=== PATIENT | male | born 1975 | race American Indian/Alaskan Native ===

== ENCOUNTER 2017-04-14 10:42 | Emergency (ER) | payer BC, OTHER ==
[2017-04-14] MEDS ORDERED: RX INFO: IV CONTRAST WAS GIVEN 1 EACH MISC MISCELLANE PRN (12:59)
[2017-04-14 13:24] LABS: Basophils # (A) 0.1 k/uL (0-0.2); Basophils % (A) 1 %; Eosinophils # (A) 0.1 k/uL (0-0.7); Eosinophils % (A) 2 %; HCT 49.4 % (39.0-53.0); HGB 16.2 gm/dL (13.0-17.5); Lymphocytes # (A) 2.5 k/uL (1.0-4.8); Lymphocytes % (A) 29 %; MCH 29.2 pg (25.0-35.0); MCHC 32.8 g/dL (31.0-37.0); Mean Platelet Volume 7.3; Monocytes # (A) 0.4 k/uL (0-1.0); Monocytes % (A) 4 %; Neutrophils # (A) 5.5 k/uL (1.3-7.7); Neutrophils % (A) 63 %; Platelet Count 311 k/uL (150-450); RBC 5.55 m/uL (4.30-5.90); RDW 13.8 % (11.5-15.5); WBC 8.6 k/uL (3.8-10.6)
[2017-04-14 13:33] LABS: Appearance,Urine Clear (Clear); Bilirubin,Urine Negative (Negative); Blood,Urine Negative (Negative); Color,Urine Colorless; Glucose,Urine (UA) Negative (Negative); Ketones,Urine Negative (Negative); Leukocyte Esterase,Urine Negative (Negative); Nitrite,Urine Negative (Negative); Protein,Urine Negative (Negative); Specific Gravity,Urine 1.001 (1.001-1.035); Urobilinogen,Urine <2.0 mg/dL (<2.0)
[2017-04-14 13:34] LABS: ALT 44 U/L (21-72); AST 16 U/L (17-59); Albumin 4.5 g/dL (3.5-5.0); Alkaline Phosphatase 78 U/L (38-126); Amylase 68 U/L (30-110); Anion Gap 15 mmol/L; Blood Urea Nitrogen 12 mg/dL (9-20); Calcium 10.2 mg/dL (8.4-10.2); Carbon Dioxide 24 mmol/L (22-30); Chloride 105 mmol/L (98-107); Glucose 118 mg/dL (74-99); Lipase 155 U/L (23-300); Potassium 4.3 mmol/L (3.5-5.1); Sodium 144 mmol/L (137-145); Total Bilirubin 0.5 mg/dL (0.2-1.3); Total Protein 7.4 g/dL (6.3-8.2)
--- NOTE | 2017-04-14 14:04 | CT ---
EXAMINATION TYPE: CT abdomen pelvis w con DATE OF EXAM: 04/14/2017 COMPARISON: NONE HISTORY: Left upper quadrant pain x 1 year, getting progressively worse. CT DLP: 1657 mGycm CONTRAST: CT scan of the abdomen and pelvis is performed without Oral Contrast and with IV Contrast, patient in jected with 100 mL of Omnipaque 300. FINDINGS: LUNG BASES-: No visible nodule. No infiltrate. LIVER/GB: No calcified gallstones. 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 No additional hepatic lesions seen.. Biliary tree is of normal caliber. PANCREAS: No inflammation. No distinct mass. SPLEEN: No splenic enlargement. No lesion seen. ADRENALS: No nodule. No thickening. KIDNEYS/BLADDER: No hydronephrosis. No nephrolithiasis. No distinct renal mass. Urinary bladder g rossly unremarkable. BOWEL: Normal appendix. Normal bowel caliber. No inflammation. GENITAL ORGANS: No gross abnormality. LYMPH NODES: No greater than 1cm abdominal or pelvic lymph nodes are appreciated. AORTA: No significant abnormality. OSSEOUS STRUCTURES: No significant abnormality is seen. OTHER: No significant additional abnormality is seen. IMPRESSION: 1. No significant abnormality to account for the patient's symptoms.
--- NOTE | 2017-04-14 14:54 | ED ---
General Adult HPI - General Chief complaint: Abdominal Pain Stated complaint: Abdominal pain Time Seen by Provider: 04/14/17 12:27 Source: patient, RN notes reviewed Mode of arrival: ambulatory Limitations: no limitations - History of Present Illness Initial comments: 41-year-old male with no significant past medical history presents for evaluation of one year of left upper quadrant abdominal pain. This pain has been worsening in the past one week. Patient denies nausea vomiting. Denies diarrhea. Denies fever or chills. States he did lose some weight when his mother several months ago when he has quickly regained this week. Denies chest pain or shortness of breath. Denies headache. Denies URI symptoms. Denies extremity pain or swelling. Pain is sharp and intermittent. Localized to the left upper quadrant no radiation. - Related Data Home Medications Medication Instructions Recorded Confirmed No Known Home Medications [No 04/14/17 04/14/17 Known Home Medications] Allergies Allergy/AdvReac Type Severity Reaction Status Date / Time ibuprofen AdvReac IRRITATES Verified 04/14/17 12:30 HIS GERDS Review of Systems ROS Statement: Those systems with pertinent positive or pertinent negative responses have been documented in the HPI. ROS Other: All systems not noted in ROS Statement are negative. Past Medical History Past Medical History: Hypertension Additional Past Medical History / Comment(s): elevated liver enzymes History of Any Multi-Drug Resistant Organisms: None Reported Past Surgical History: Appendectomy Additional Past Surgical History / Comment(s): mass in right upper chest removed , BL rotator cuff surgery Past Psychological History: Anxiety Smoking Status: Never smoker Past Alcohol Use History: Occasional Past Drug Use History: Marijuana General Exam Limitations: no limitations General appearance: alert, in no apparent distress Head exam: Present: atraumatic, normocephalic Eye exam: Present: normal appearance, PERRL, EOMI ENT exam: Present: normal exam Neck exam: Present: normal inspection. Absent: tenderness, meningismus Respiratory exam: Present: normal lung sounds bilaterally. Absent: respiratory distress, wheezes Cardiovascular Exam: Present: regular rate, normal rhythm GI/Abdominal exam: Present: soft. Absent: distended, tenderness, guarding, rebound Extremities exam: Present: normal inspection, normal capillary refill. Absent: pedal edema Back exam: Present: normal inspection, full ROM. Absent: tenderness Neurological exam: Present: alert, oriented X3, CN II-XII intact. Absent: motor sensory deficit Psychiatric exam: Present: normal affect, normal mood Skin exam: Present: warm, dry, intact. Absent: cyanosis, diaphoretic Course Vital Signs 04/14/17 04/14/17 10:48 14:00 Temperature 98.1 F Pulse Rate 79 77 Respiratory 20 20 Rate Blood Pressure 149/102 119/82 O2 Sat by Pulse 98 98 Oximetry Medical Decision Making - Medical Decision Making 41-year-old male presents with one year of left upper quadrant pain. Patient is nontender on exam. Laboratory studies are obtained, these are unremarkable including CBC, CMP, urinalysis. CT is obtained, there is no hepatosplenomegaly. No intra-abdominal mass. No findings to account for the patient's pain. Patient will establish primary care physician and follow-up. - Lab Data Result diagrams: 04/14/17 13:14 04/14/17 13:14 Lab Results 04/14/17 04/14/17 04/14/17 Range/Units 13:14 13:14 13:14 WBC 8.6 (3.8-10.6) k/uL RBC 5.55 (4.30-5.90) m/uL Hgb 16.2 (13.0-17.5) gm/dL Hct 49.4 (39.0-53.0) % MCV 89.0 (80.0-100.0) fL MCH 29.2 (25.0-35.0) pg MCHC 32.8 (31.0-37.0) g/dL RDW 13.8 (11.5-15.5) % Plt Count 311 (150-450) k/uL Neutrophils % 63 % Lymphocytes % 29 % Monocytes % 4 % Eosinophils % 2 % Basophils % 1 % Neutrophils # 5.5 (1.3-7.7) k/uL Lymphocytes # 2.5 (1.0-4.8) k/uL Monocytes # 0.4 (0-1.0) k/uL Eosinophils # 0.1 (0-0.7) k/uL Basophils # 0.1 (0-0.2) k/uL Sodium 144 (137-145) mmol/L Potassium 4.3 (3.5-5.1) mmol/L Chloride 105 (98-107) mmol/L Carbon Dioxide 24 (22-30) mmol/L Anion Gap 15 mmol/L BUN 12 (9-20) mg/dL Creatinine 1.02 (0.66-1.25) mg/dL Est GFR (MDRD) Af Amer >60 (>60 ml/min/1.73 sqM) Est GFR (MDRD) Non-Af >60 (>60 ml/min/1.73 sqM) Glucose 118 H (74-99) mg/dL Calcium 10.2 (8.4-10.2) mg/dL Total Bilirubin 0.5 (0.2-1.3) mg/dL AST 16 L (17-59) U/L ALT 44 (21-72) U/L Alkaline Phosphatase 78 (38-126) U/L Total Protein 7.4 (6.3-8.2) g/dL Albumin 4.5 (3.5-5.0) g/dL Amylase 68 (30-110) U/L Lipase 155 (23-300) U/L Urine Color Colorless Urine Appearance Clear (Clear) Urine pH 5.0 (5.0-8.0) Ur Specific [place] 1.001 (1.001-1.035) Urine Protein Negative (Negative) Urine Glucose (UA) Negative (Negative) Urine Ketones Negative (Negative) Urine Blood Negative (Negative) Urine Nitrite Negative (Negative) Urine Bilirubin Negative (Negative) Urine Urobilinogen <2.0 (<2.0) mg/dL Ur Leukocyte Esterase Negative (Negative) Disposition Clinical Impression: Abdominal pain Disposition: HOME SELF-CARE Condition: Good Instructions: Abdominal Pain (ED) Referrals: None,Stated [Primary Care Provider] - 1-2 days Radha Sow MD [REFERRING] - 1-2 days Time of Disposition: 14:55
[2017-04-14 15:06] VITALS: BP 144/88; PULSE 75; RESP 18; TEMP 98
== END 2017-04-14 15:05 | disposition home or self-care (01) ==
LOC: EC 10:42
DX: R10.12 Left upper quadrant pain (principal); Z88.6 Allergy status to analgesic agent; Z98.890 Other specified postprocedural states
CPT/HCPCS: 36415; 80053; 82150; 83690; 85025; 81003; 74177; 99284; Q9967

== ENCOUNTER 2018-07-27 03:30 | Emergency (ER) | payer OTHER ==
[2018-07-27 03:39] VITALS: TEMP 98.3
[2018-07-27 04:11] LABS: Basophils % (A) 1 %; Eosinophils # (A) 0.2 k/uL (0-0.7); Eosinophils % (A) 2 %; HCT 49.1 % (39.0-53.0); HGB 16.2 gm/dL (13.0-17.5); Lymphocytes # (A) 2.1 k/uL (1.0-4.8); Lymphocytes % (A) 22 %; MCH 29.9 pg (25.0-35.0); MCHC 32.9 g/dL (31.0-37.0); MCV 90.9 fL (80.0-100.0); Mean Platelet Volume 7.1; Monocytes # (A) 0.7 k/uL (0-1.0); Monocytes % (A) 7 %; Neutrophils # (A) 6.1 k/uL (1.3-7.7); Neutrophils % (A) 66 %; Platelet Count 284 k/uL (150-450); RDW 14.1 % (11.5-15.5); WBC 9.2 k/uL (3.8-10.6)
[2018-07-27 04:26] LABS: INR 0.9 (<1.2); Partial Thromboplastin Time 25.4 sec (22.0-30.0); Prothrombin Time 9.9 sec (9.0-12.0)
[2018-07-27 04:27] LABS: Albumin 4.7 g/dL (3.5-5.0); Calcium 9.6 mg/dL (8.4-10.2); Magnesium 1.6 mg/dL (1.6-2.3); Potassium 3.6 mmol/L (3.5-5.1); Total Bilirubin 0.7 mg/dL (0.2-1.3); Total Protein 7.5 g/dL (6.3-8.2)
[2018-07-27] MEDS ORDERED: NITROGLYCERIN SL TABS 0.4 MG TAB SUBLINGUAL STA (04:27)
--- NOTE | 2018-07-27 04:36 | ED ---
Chest Pain HPI - General Chief Complaint: Chest Pain Stated Complaint: chest tightness,hypertension Time Seen by Provider: 07/27/18 03:31 Source: patient Mode of arrival: ambulatory Limitations: no limitations - History of Present Illness Initial Comments: Is a 42-year-old gentleman who presents to the emergency department today for evaluation of chest pain. Patient reports that his pain began mid afternoon, is described as vague discomfort in his chest with no associated diaphoresis lightheadedness or shortness of breath. Patient reports that this is persisted throughout the evening so he came to the ER for evaluation. Patient has no cardiac history and no known family history of early cardiac disease. MD Complaint: chest pain -: hour(s) Pain Radiation: none Severity: moderate Quality: aching Consistency: constant Worsens With: nothing Treatments Prior to Arrival: none - Related Data Previous Rx's Medication Instructions Recorded Lisinopril [Prinivil] 20 mg PO DAILY #30 tablet 07/27/18 Allergies Allergy/AdvReac Type Severity Reaction Status Date / Time ibuprofen AdvReac IRRITATES Verified 04/14/17 12:30 HIS GERDS Review of Systems ROS Statement: Those systems with pertinent positive or pertinent negative responses have been documented in the HPI. ROS Other: All systems not noted in ROS Statement are negative. EKG Findings - EKG Comments: EKG Findings:: EKG was obtained for evaluation of chest pain and EKG obtained at 350 every morning, rate is 87 rhythm is sinus at normal axis are normal intervals, MD 140, care is 90, QTC 459 there are no acute ST elevations or depressions is no evidence of acute ischemia or infarction. Past Medical History Past Medical History: Hypertension Additional Past Medical History / Comment(s): elevated liver enzymes History of Any Multi-Drug Resistant Organisms: None Reported Past Surgical History: Appendectomy Additional Past Surgical History / Comment(s): mass in right upper chest removed, BL rotator cuff surgery Past Psychological History: Anxiety Smoking Status: Former smoker Past Alcohol Use History: Daily Past Drug Use History: Marijuana General Exam - General Exam Comments Initial Comments: Physical Exam GENERAL: Patient is well-developed and well-nourished. Patient is nontoxic and well- hydrated and is in no distress. HENT: Normocephalic, Atraumatic. EYES: PERRL, EOMI PULMONARY: Unlabored respirations. No audible rales rhonchi or wheezing was noted. CARDIOVASCULAR: There is a regular rate and rhythm without any murmurs gallops or rubs. ABDOMEN: Soft and nontender with normal bowel sounds. SKIN: Skin is clear with no lesions or rashes and otherwise unremarkable. : Deferred NEUROLOGIC: Patient is alert and oriented x3. Moving all extremities spontaneously MUSCULOSKELETAL: Normal extremities with adequate strength and full range of motion. No lower extremity swelling or edema. No calf tenderness. PSYCHIATRIC: Normal psychiatric evaluation. Limitations: no limitations Limitations: no limitations Course Vital Signs 07/27/18 07/27/18 03:34 05:00 Temperature 98.3 F Pulse Rate 89 90 Respiratory 20 19 Rate Blood Pressure 161/101 129/89 O2 Sat by Pulse 99 95 Oximetry [facility] was seen and evaluated history is obtained from the patient 42-year-old gentleman with a history of hypertension and obesity presenting with vague chest pain for a number of hours. 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 Patient has not taken anything for this. He does not have any cardiac history. Labs and imaging were ordered. KG was nonischemic Chest x-ray was unremarkable labs are unremarkable, considering the patient is had pain for greater than 6 hours and continues to have a nonelevated troponin I do feel the patient is stable for discharge home and did offer the patient observation here in the hospital for further evaluation by cardiology and continued cardiac monitoring however patient adamantly declines admission. Patient states the hospitals make him very anxious and he is very uncomfortable being in this hospital in particular because his mother here. Patient would much rather be discharged home to follow with his primary care physician. All questions pertaining care were answered return parameters were discussed and patient was discharged home in stable condition. She was noted remained hypertensive throughout his stay in the emergency department. Single dose of medication was given here for hypertension his blood pressure improved significantly. I will give the patient a 30 day supply of lisinopril for treatment of hypertension. I advised the patient that lisinopril can cause a dry cough if he develops this seems to discuss it with his primary care physician. I also discussed the possibility of development of angioedema and advised that if he has any symptoms of lip or tongue swelling he needs come to the emergency department immediately. - Wells Criteria Clinical Symptoms of DVT: (0) No No Alternative Diagnosis: (0) No Immobilization of Surgery in Previous 4 Weeks: (0) No Previous DVT/PE: (0) No Hemoptysis: (0) No Malignancy: (0) No - MICHAEL Score Age > 65: (0) No 3 or more CAD Risk Factors: (0) No Known CAD with more than 50% Stenosis: (0) No Aspirin use within the Past 7 Days: (0) No Elevated Cardiac Markers: (0) No ST Deviation Greater than 0.5mm: (0) No Disposition Clinical Impression: Atypical chest pain, Hypertension Disposition: HOME SELF-CARE Condition: Stable Instructions (If sedation given, give patient instructions): Chest Pain (ED), Hypertension (ED) Prescriptions: Lisinopril [Prinivil] 20 mg PO DAILY #30 tablet Is patient prescribed a controlled substance at d/c from ED?: No Referrals: None,Stated [Primary Care Provider] - 1-2 days
--- NOTE | 2018-07-27 04:38 | XR ---
EXAM: XR Chest, 2 Views CLINICAL HISTORY: ITS.REASON XR Reason: Chest Pain TECHNIQUE: Frontal and lateral views of the chest. COMPARISON: CT chest 10/27/2014 FINDINGS: Lungs: No focal pulmonary infiltrates or consolidations. Mild right base subsegmental atelectasis or scarring. Pleural space: No evidence of pneumothorax or pleural effusion. Heart: Heart size is within normal limits. Mediastinum: Mediastinal structures are unremarkable. Bones/joints: Imaged bony thorax is unremarkable. Upper abdomen: Mild chronic elevation of right hemidiaphragm, unchanged. IMPRESSION: No evidence of acute cardiopulmonary disease.
[2018-07-27 05:08] VITALS: BP 129/89; PULSE 90; RESP 19
== END 2018-07-27 05:14 | disposition home or self-care (01) ==
LOC: EC 03:30
DX: I10 Essential (primary) hypertension (principal); R07.89 Other chest pain; Z87.891 Personal history of nicotine dependence; Z88.6 Allergy status to analgesic agent; Z98.890 Other specified postprocedural states; Z53.29 Procedure and treatment not carried out because of patient's decision for other reasons
CPT/HCPCS: 36415; 71046; 80053; 83735; 84484; 85025; 85610; 85730; 93005; 99285

== ENCOUNTER → 2023-01-15 | Outpatient (CLI) | payer OTHER ==
--- NOTE | 2023-01-15 11:48 | US ---
EXAMINATION TYPE: US gallbladder DATE OF EXAM: 01/15/2023 COMPARISON: 05/10/2014 CLINICAL INDICATION: Male, 47 years old with history of R10.13 EPIGASTRIC PAIN; RUQ pain TECHNIQUE: Multiple sonographic images of the right upper quadrant are obtained. 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 No focal lesion seen in the visualized portions. Gallbladder: No stones or wall thickening seen Evidence for sonographic Thompson's sign: neg CBD: limited Right Kidney: No hydronephrosis or masses seen. 5 mm echogenic focus at the upper to mid pole. IMPRESSION: Exam limitations due to bowel gas and intercostal views of the liver. Suspect a 5 mm nonobstructive r ight renal stone. Otherwise, no specific abnormality seen.
== END | disposition home or self-care (01) ==
LOC: RADUSWWP 07:29
PROVIDERS: ATTEND Family Medicine
DX: R10.13 Epigastric pain (principal); R14.3 Flatulence
CPT/HCPCS: 76705